=== PATIENT | female | born 1955 | race Two or more races ===

== ENCOUNTER → 2018-01-21 14:54 | Outpatient (CLI) | payer OTHER ==
[~2018-01-21 14:54] MED LIST: TOPROL XL50 MG PO; ZITHROMAX500 MG PO
== END | disposition home or self-care (01) ==
LOC: LAB 14:54
DX: D64.9 Anemia, unspecified (principal); N39.9 Disorder of urinary system, unspecified; E11.9 Type 2 diabetes mellitus without complications; E78.5 Hyperlipidemia, unspecified; E07.9 Disorder of thyroid, unspecified

== ENCOUNTER 2018-01-23 12:43 | Outpatient (CLI) | payer OTHER | END 2018-01-23 12:57 | disposition home or self-care (01) | LOC: MAMO-SONO 12:43 | DX: Z12.31 Encounter for screening mammogram for malignant neoplasm of breast (principal); N61.1 Abscess of the breast and nipple ==

== ENCOUNTER 2018-01-24 12:00 | Outpatient (CLI) | payer OTHER | END 2018-01-24 12:20 | disposition home or self-care (01) | LOC: LAB 12:00 | DX: N39.9 Disorder of urinary system, unspecified (principal) ==

== ENCOUNTER 2018-08-19 13:49 | Outpatient (CLI) | payer OTHER | END 2018-08-19 14:20 | disposition home or self-care (01) | LOC: LAB 13:49 | DX: D64.89 Other specified anemias (principal); N39.9 Disorder of urinary system, unspecified; E11.9 Type 2 diabetes mellitus without complications; E78.4 Other hyperlipidemia; E07.89 Other specified disorders of thyroid ==

== ENCOUNTER 2019-02-11 13:37 | Outpatient (CLI) | payer OTHER | END 2019-02-11 13:40 | disposition home or self-care (01) | LOC: MAMO-SONO 13:37 | DX: N60.11 Diffuse cystic mastopathy of right breast (principal); N60.12 Diffuse cystic mastopathy of left breast; Z12.31 Encounter for screening mammogram for malignant neoplasm of breast ==

== ENCOUNTER 2019-05-12 14:29 | Outpatient (CLI) | payer OTHER | END 2019-05-12 14:40 | disposition home or self-care (01) | LOC: LAB 14:29 | DX: Z01.812 Encounter for preprocedural laboratory examination (principal); N39.0 Urinary tract infection, site not specified; J01.80 Other acute sinusitis; D68.8 Other specified coagulation defects ==

== ENCOUNTER 2021-09-26 14:17 | Emergency (ER) | payer OTHER ==
[~2021-09-26] VITALS: Ht 175.3 cm; Wt 104.3 kg
[2021-09-26] MEDS ORDERED: COZAAR100 MG PO (14:44)
[2021-09-26] MEDS ORDERED: CARVEDILOL ER40 MG PO (14:44)
[2021-09-26] MEDS ORDERED: LEVOTHYROXINE50 MC1 (14:57)
[2021-09-26] MEDS ORDERED: MIRALAX510 GM PO (18:25)
== END 2021-09-26 18:44 | disposition home or self-care (01) ==
LOC: ER 14:17
DX: K59.09 Other constipation (principal)

== ENCOUNTER 2021-11-22 13:34 | Outpatient (CLI) | payer OTHER ==
[~2021-11-22 13:34] MED LIST changes: +CARVEDILOL ER40 MG PO; +COZAAR100 MG PO; +LEVOTHYROXINE50 MC1; +MIRALAX510 GM PO
== END 2021-11-22 13:44 | disposition home or self-care (01) ==
LOC: SONOGRAMA 13:34
PROVIDERS: ATTEND Internal Medicine Cardiovascular Disease
DX: K76.0 Fatty (change of) liver, not elsewhere classified (principal); R10.84 Generalized abdominal pain

== ENCOUNTER 2021-11-26 11:14 | Outpatient (CLI) | payer OTHER | END 2021-11-26 11:42 | disposition home or self-care (01) | LOC: NUCLEAR 11:14 | PROVIDERS: ATTEND Internal Medicine Cardiovascular Disease | DX: I82.493 Acute embolism and thrombosis of other specified deep vein of lower extremity, bilateral (principal); I87.2 Venous insufficiency (chronic) (peripheral) ==

== ENCOUNTER 2022-04-04 10:32 | Outpatient (CLI) | payer OTHER | END 2022-04-04 10:33 | disposition home or self-care (01) | LOC: NUCLEAR 10:32 | PROVIDERS: ATTEND Internal Medicine Cardiovascular Disease | DX: R07.89 Other chest pain (principal); I48.91 Unspecified atrial fibrillation ==

== ENCOUNTER 2022-06-28 07:52 | Outpatient (CLI) | payer OTHER | END 2022-06-28 07:53 | disposition home or self-care (01) | LOC: NUCLEAR 07:52 | PROVIDERS: ATTEND Internal Medicine Cardiovascular Disease | DX: R07.9 Chest pain, unspecified (principal) ==

== ENCOUNTER 2023-09-22 14:00 | Outpatient (CLI) | payer OTHER | END 2023-09-22 14:07 | disposition home or self-care (01) | LOC: RAD 14:00 | PROVIDERS: ATTEND Specialist | DX: Z01.818 Encounter for other preprocedural examination (principal); D05.11 Intraductal carcinoma in situ of right breast ==

== ENCOUNTER 2023-12-04 11:33 | Outpatient (CLI) | payer OTHER | END 2023-12-04 11:49 | disposition home or self-care (01) | LOC: SONOGRAMA 11:33 | DX: D05.11 Intraductal carcinoma in situ of right breast (principal) ==